=== PATIENT | male | born 1985 | race Two or more races ===

== ENCOUNTER 2017-12-29 21:36 | Observation (INO) | payer BC ==
--- NOTE | 2017-12-29 21:46 | CPEKG ---
Heart Rate: 66 RR Interval: 909 P-R Interval: 176 QRSD Interval: 108 QT Interval: 468 QTC Interval: 491 P [place]: 20 QRS [place]: -31 T Wave [place]: 41 EKG Severity - ABNORMAL ECG - EKG Impression: SINUS RHYTHM EKG Impression: BORDERLINE IVCD WITH LAD EKG Impression: INFERIOR Q WAVES, PROBABLY NORMAL VARIATION EKG Impression: ST ELEV, PROBABLE NORMAL EARLY REPOL PATTERN EKG Impression: PROLONGED QT INTERVAL Electronically Signed By: Aramis Littlejohn 30-Dec-2017 06:54:33
--- NOTE | 2017-12-29 21:46 | EDPHY ---
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 The patient completed the race and was in the recovery 10 and had some vomiting and had a brief 30 sec seizure. He was given 2 mg IV Versed by EMS and brought to the emergency room. He did receive a 500 cc normal saline fluid bolus and additionally he was orally hydrating with hypertonic solution. He did not get any hypertonic IV solution. Upon arrival he is brought to ER room 2. He is mentating appropriately and answers my questions. He is in no acute distress. Past Medical History: Denies medical history Past Surgical History: Denies surgical history Social History: Denies drugs alcohol tobacco. Family History: Noncontributory ROS REVIEW OF SYSTEMS: A comprehensive 10 point review of systems is otherwise negative aside from elements mentioned in the history of present illness. Exam Constitutional nontoxic appearing, dehydrated triage nursing summary reviewed, vital signs reviewed, awake/alert. Eyes normal conjunctivae and sclera, EOMI, PERRLA. HENT normal inspection, atraumatic, dry mucus membranes, no epistaxis, neck supple/ no meningismus, no raccoon eyes. Respiratory clear to auscultation bilaterally, normal breath sounds, no respiratory distress, no wheezing. Cardiovascular rate normal, regular rhythm, no murmur, no edema, distal pulses normal. Gastrointestinal soft, non-tender, no rebound, no guarding, normal bowel sounds, no distension, no pulsatile mass. Genitourinary no CVA tenderness. Musculoskeletal no midline vertebral tenderness, full range of motion, no calf swelling, no tenderness of extremities, no meningismus, good pulses, neurovascularly intact. Skin pink, warm, & dry, no rash, skin atraumatic. Neurologic awake, alert and oriented x 3, AAOx3, moves all 4 extremities equally, motor intact, sensory intact, CN II-XII intact, normal cerebellar, normal vision, normal speech. Psychiatric normal mood/affect. Heme/Lymph/Immune no lymphadenopathy. Differential Diagnosis: Includes but is not limited to in a particular order dehydration, electrolyte disturbance, hyponatremia, seizure from hyponatremia, rhabdomyolysis, renal failure Medical Decision Making: Plan for this patient IV establishment full director of cardiac rehabilitation obtain EKG and basic blood work electrolytes, will obtain sodium, most likely gently hydrate with IV fluids. If he has another seizure will give hypertonic saline. Re-evaluation: EKG interpretation by me on record in [facility] system. Impression time of EKG 2140, this is sinus rhythm rate of 66 no acute ischemic change. Early repol pattern appreciated. ED x-ray chest one view: Negative for acute cardiopulmonary disease. 2330: Patient is resting comfortably no acute distress. He is receiving IV fluids. Electrolytes have been noted. Hyponatremic. He is volume depleted. He did urinate here. Patient need to be admitted for rhabdomyolysis, hyponatremia, dehydration any seizure. No further seizure activity here in the emergency room. 2343: Spoke with Dr. Beauchamp hospitalist agrees to admit. 1223AM: Patient started vomiting, complaining headache, slightly confused. I have ordered him 100 mL of 3% hypertonic saline. Will re-evaluate shortly. Source: Patient, EMS Constitutional: Initial Vital Signs Temperature (C) 36.3 C 12/29/17 21:41 Heart Rate 61 12/29/17 21:41 Respiratory Rate 18 12/29/17 21:41 Blood Pressure 108/63 12/29/17 21:41 O2 Sat (%) 98 12/29/17 21:41 O2 Delivery Mode Room Air Allergies/Adverse Reactions: ampicillin Allergy (Intermediate, Verified 12/29/17 22:03) Rash Home Medications: Medication Instructions Recorded NK [No Known Home Meds] 12/29/17 Medical Decision Making - Data Points Laboratory Results: Laboratory Results 12/29/17 21:46 12/29/17 21:46 Medications Given: Discontinued Medications Acetaminophen (Tylenol) 650 mg PO Q4HRS PRN PRN Reason: Pain, Mild/Fever, Can Take PO Stop: 06/27/18 23:47 Last Admin: 12/30/17 09:52 Dose: 650 mg Acetaminophen (Tylenol) 1,000 mg PO ONCE ONE Stop: 12/30/17 00:10 Last Admin: 12/30/17 00:19 Dose: 1,000 mg Sodium Chloride (Ns) 1,000 mls @ 0 mls/hr IV ONCE ONE PRN Reason: Wide Open Stop: 12/29/17 22:39 Last Admin: 12/29/17 22:51 Dose: 1,000 mls Sodium Chloride (Ns) 1,000 mls @ 0 mls/hr IV ONCE ONE PRN Reason: Wide Open Stop: 12/29/17 23:53 Last Admin: 12/30/17 02:31 Dose: 1,000 mls Sodium Chloride (Sodium Chloride 3%) 100 mls @ 0 mls/hr IV CONT SUZE PRN Reason: As Directed Stop: 06/28/18 00:14 Last Admin: 12/30/17 00:20 Dose: 100 mls Ondansetron HCl (Zofran) 4 mg IVP EDNOW ONE Stop: 12/29/17 22:53 Last Admin: 12/29/17 22:52 Dose: 4 mg Promethazine HCl (Phenergan) 6.25 mg IVP ONCE ONE Stop: 12/30/17 00:10 Last Admin: 12/30/17 00:19 Dose: 6.25 mg Point of Care Test Results: Chemistry 12/29/17 21:41 POC Troponin I 0.02 ng/mL ng/mL (0.00-0.08) Departure - Departure Disposition: [facility] Inpatient Acute Clinical Impression: Dehydration, Seizure, Hyponatremia Rhabdomyolysis Qualifiers: Rhabdomyolysis type: non-traumatic Qualified Code(s): M62.82 - Rhabdomyolysis Condition: Fair
[2017-12-29 22:01] LABS: PLATELET COUNT 153 10^3/uL (150-400)
[2017-12-29 22:19] LABS: INR 1.17 (0.83-1.16); PROTIME(PATIENT) 15.1 SEC (12.0-15.0)
[2017-12-29 22:24] LABS: CREATINE KINASE 976 IU/L (0-224)
[2017-12-29] MEDS ORDERED: NS 1,000 ML IV ONE ×2 (22:38→23:52)
[2017-12-29] MEDS ORDERED: ONDANSETRON 4 MG/2 ML VIAL ONE (22:48)
[2017-12-29] MEDS ORDERED: ONDANSETRON 4 MG/2 ML VIAL IVP ONE (22:52)
[2017-12-29] MEDS ORDERED: ACETAMINOPHEN 325 MG TAB PO PRN (23:48)
[2017-12-29] MEDS ORDERED: ONDANSETRON DISINTEGRATING 4 MG TAB PO PRN (23:48)
[2017-12-29] MEDS ORDERED: ONDANSETRON 4 MG/2 ML VIAL IVP PRN (23:48)
[2017-12-30] MEDS ORDERED: ACETAMINOPHEN 500 MG TAB PO ONE (00:09)
[2017-12-30] MEDS ORDERED: PROMETHAZINE HCL 25 MG/ML INJ IVP ONE (00:09)
[2017-12-30] MEDS ORDERED: SODIUM Cl 3% 100 ML IV SCH (00:15)
--- NOTE | 2017-12-30 03:10 | PDGENHP ---
History and Physical - Chief Complaint Seizure - History of Present Illness 32 yo M w/ no PMHx presents after a seizure. Patient raced in the [employer] today. Shortly after crossing the finish line, he suffered a witnessed seizure. He tells me he remembers finishing and then he remembers waking up on the ground. He denies any prior seizure history or family history of epilepsy. At the time of my evaluation patient is asymptomatic. Laboratory evaluation in the ED was notable for mild hyponatremia (128) and leukocytosis. He is being admitted for observation. History Information - Allergies/Home Medication List Allergies/Adverse Reactions: ampicillin Allergy (Intermediate, Verified 12/29/17 22:03) Rash Home Medications: NK [No Known Home Meds] 12/29/17 [Last Taken Unknown] I have personally reviewed and updated: family history, medical history - Past Medical History no pertinent PMH - Surgical History Reports: no pertinent surgical hx - Family History Additional family history: Denies family hx of seizure d/o - Social History Smoking Status: Never smoked Review of Systems Review of Systems: ROS: 10pt was reviewed & negative except for what was stated in HPI & below Physical Exam Physical Exam: Temp Pulse Resp BP Pulse Ox 36.8 C 104 H 15 131/82 H 94 12/30/17 02:46 12/30/17 02:46 12/30/17 02:46 12/30/17 02:46 12/30/17 02:46 Constitutional: no apparent distress, not in pain Eyes: PERRL, EOMI Ears, Nose, Mouth, Throat: moist mucous membranes, no oral mucosal ulcers Cardiovascular: regular rate and rhythym, no murmur, rub, or gallop Respiratory: no respiratory distress, no rales or rhonchi Gastrointestinal: normoactive bowel sounds, soft, non-tender abdomen Skin: warm, normal color Musculoskeletal: full muscle strength, no muscle tenderness Neurologic: AAOx3, CN II-XII Intact Psychiatric: interacting appropriately, not anxious Lab Data & Imaging Review 12/29/17 21:46 12/30/17 01:01 WBC 17.85 10^3/uL (3.80-9.50) H 12/29/17 21:46 RBC 4.77 10^6/uL (4.40-6.38) 12/29/17 21:46 Hgb 14.2 g/dL (13.7-17.5) 12/29/17 21:46 Hct 41.2 % (40.0-51.0) 12/29/17 21:46 MCV 86.4 fL (81.5-99.8) 12/29/17 21:46 MCH 29.8 pg (27.9-34.1) 12/29/17 21:46 MCHC 34.5 g/dL (32.4-36.7) 12/29/17 21:46 RDW 12.4 % (11.5-15.2) 12/29/17 21:46 Plt Count 153 10^3/uL (150-400) 12/29/17 21:46 MPV 11.6 fL (8.7-11.7) 12/29/17 21:46 Neut % (Auto) 73.7 % (39.3-74.2) 12/29/17 21:46 Lymph % (Auto) 17.6 % (15.0-45.0) 12/29/17 21:46 [place] % (Auto) 7.8 % (4.5-13.0) 12/29/17 21:46 Eos % (Auto) 0.1 % (0.6-7.6) L 12/29/17 21:46 Baso % (Auto) 0.4 % (0.3-1.7) 12/29/17 21:46 Nucleat RBC Rel Count 0.0 % (0.0-0.2) 12/29/17 21:46 Absolute Neuts (auto) 13.15 10^3/uL (1.70-6.50) H 12/29/17 21:46 Absolute Lymphs (auto) 3.15 10^3/uL (1.00-3.00) H 12/29/17 21:46 Absolute Monos (auto) 1.40 10^3/uL (0.30-0.80) H 12/29/17 21:46 Absolute Eos (auto) 0.01 10^3/uL (0.03-0.40) L 12/29/17 21:46 Absolute Basos (auto) 0.07 10^3/uL (0.02-0.10) 12/29/17 21:46 Absolute Nucleated RBC 0.00 10^3/uL (0-0.01) 12/29/17 21:46 Immature Gran % 0.4 % (0.0-1.1) 12/29/17 21:46 Immature Gran # 0.07 10^3/uL (0.00-0.10) 12/29/17 21:46 PT 15.1 SEC (12.0-15.0) H 12/29/17 21:46 INR 1.17 (0.83-1.16) H 12/29/17 21:46 APTT 28.6 SEC (23.0-38.0) 12/29/17 21:46 VBG Lactic Acid 4.0 mmol/L (0.7-2.1) H 12/29/17 21:55 Sodium 128 mEq/L (135-145) L 12/30/17 01:01 Potassium 3.8 mEq/L (3.3-5.0) 12/30/17 01:01 Chloride 96 mEq/L (97-110) L 12/30/17 01:01 Carbon Dioxide 25 mEq/l (22-31) 12/30/17 01:01 Anion Gap 7 mEq/L (8-16) L 12/30/17 01:01 BUN 14 mg/dL (7-23) 12/30/17 01:01 Creatinine 0.7 mg/dL (0.7-1.3) 12/30/17 01:01 Estimated GFR > 60 12/30/17 01:01 Glucose 112 mg/dL (70-100) H 12/30/17 01:01 Calcium 7.9 mg/dL (8.5-10.4) L 12/30/17 01:01 Total Bilirubin 1.4 mg/dL (0.1-1.4) 12/29/17 21:46 Conjugated Bilirubin 0.3 mg/dL (0.0-0.5) 12/29/17 21:46 Unconjugated Bilirubin 1.1 mg/dL (0.0-1.1) 12/29/17 21:46 AST 60 IU/L (17-59) H 12/29/17 21:46 ALT 68 IU/L (21-72) 12/29/17 21:46 Alkaline Phosphatase 65 IU/L (38-126) 12/29/17 21:46 Creatine Kinase 976 IU/L (0-224) H 12/29/17 21:46 CK-MB (CK-2) Fraction 14.40 ng/mL (0.00-4.55) H 12/29/17 21:46 CK-MB (CK-2) % 1.5 % (0.0-4.0) 12/29/17 21:46 Creatine Kinase Interp NEGATIVE (NEGATIVE) 12/29/17 21:46 Total Protein 6.5 g/dL (6.3-8.2) 12/29/17 21:46 Albumin 3.9 g/dL (3.5-5.0) 12/29/17 21:46 Lipase 57 IU/L (23-300) 12/29/17 21:46 Urine Color PALE YELLOW 12/29/17 23:32 Urine Appearance CLEAR 12/29/17 23:32 Urine pH 7.0 (5.0-7.5) 12/29/17 23:32 Ur Specific [place] 1.008 (1.002-1.030) 12/29/17 23:32 Urine Protein NEGATIVE (NEGATIVE) 12/29/17 23:32 Urine Ketones TRACE (NEGATIVE) H 12/29/17 23:32 Urine Blood NEGATIVE (NEGATIVE) 12/29/17 23:32 Urine Nitrate NEGATIVE (NEGATIVE) 12/29/17 23:32 Urine Bilirubin NEGATIVE (NEGATIVE) 12/29/17 23:32 Urine Urobilinogen NEGATIVE EU (0.2-1.0) 12/29/17 23:32 Ur Leukocyte Esterase NEGATIVE (NEGATIVE) 12/29/17 23:32 Urine Glucose NEGATIVE (NEGATIVE) 12/29/17 23:32 Imaging Review: Imaging Impressions Chest X-Ray 12/29/17 21:42 Impression: No acute findings in the chest. Visualized and Interpreted Chest x-ray results: Yes Chest X-Ray results: no infiltrate Visualized and Interpreted EKG results: Yes EKG Interpretation: Positive for: normal sinsus rhythm, NS ST wave abnormalities Assessment & Plan Assessment: 32 yo M presents with seizure and hyponatremia after [employer] race. Plan: 1. Seizure - I suspect this was due to acute hyponatremia even though this appeared relatively mild on arrival in the ED (128). He denies any prior history of seizures and and is now back at baseline and asymptomatic. - Admit for observation - Seizure precautions 2. Acute, exercise induced hyponatremia - 128 on admission. - Continue IVF - Recheck BMP in the AM 3. Leukocytosis - reactive 2/2 strenuous exercise. Diet - Regular Code - Full Ppx - Low risk Dispo - Admit under observation status
[2017-12-30 05:22] LABS: CREATINE KINASE 1052 IU/L (0-224)
[2017-12-30 07:12] VITALS: BP 101/49
--- NOTE | 2017-12-30 10:41 | GDS ---
[f rep st] DISCHARGE SUMMARY DISCHARGE DIAGNOSES: 1. Seizure due to hyponatremia. 2. Hypovolemic hyponatremia. 3. Leukocytosis 4. Mild rhabdomyolysis HISTORY OF PRESENT ILLNESS: A 32-year-old male with no past medical history presents after a seizure. He raced in the [employer] yesterday and shortly finishing, he had a witnessed seizure. Remembers finishing the race and then waking up on the ground. No personal or family seizure history. At the time of evaluation by my colleague, he was asymptomatic. Sodium in the emergency room was 128. HOSPITAL COURSE BY PROBLEM: 1. Seizure: due to dehydration/acute hyponatremia. Initial sodium was 128, now 131 after fluids. He is asymptomatic this morning, a little fatigued. He feels comfortable going home with and sister. I recommend plenty of fluids , electrolyte beverages, including Pedialyte or Gatorade. Advised to avoid sun and dehydration. 2. Hypovolemic hyponatremia: due strenuous dehydration/hyponatremia. 3. Leukocytosis: stress reaction with strenuous exercise. Denies any infectious symptoms. 4. Mild rhabdomyolysis: from strenuous exercise with [employer]. Drink plenty of fluids. Kidney function is normal, normal UOP. DISPOSITION: Patient is stable for discharge home. MEDICATIONS: No new medications. RECOMMENDATIONS: Plenty of fluids, electrolyte repletion, and rest. Avoid sun and dehydration. PHYSICAL EXAMINATION: VITAL SIGNS: Today, temperature 36.9, blood pressure 101 /49. Heart rate is in the 50s, respirations 16, 95% on room air. GENERAL: Well -appearing male, in no acute distress. HEENT: PERRLA. EOMI. Oropharynx clear. Moist mucous membranes. CV: [place], but regular. No murmurs, gallops, or rubs. LUNGS: Clear. ABDOMEN: Soft, 5/5 upper and lower extremity strength. NEUROLOGIC: 2 through 12 intact. No focal deficits. He is alert and oriented x3. /[id number]/MODL MTDD
--- NOTE | 2017-12-30 10:46 | ASMTCASEMG ---
Living Arrangements What is your living Answers: With Spouse arrangement? Who do you live with? Type Of Residence What kind of residence do Answers: House you live in? Type of Residence Facility Name Notes: [place], [place] Discharge Plan Comments Coordination Status Comments Notes: Patient is a 32yo male who had a 30 second seizure after completing the [employer] Triathlon. Patient was admitted for deydration, electrolyte disturbance, hyponatremia, seizure from hyponatremia, rhabodomyolysis, renal failute. Patient lives in [place], [place] with his and will likely d/c independently to return home. CM available for any d/c needs that might arise. Date Signed: 12/30/2017 10:45 AM Electronically Signed By:Betsy Alves LCSW
== END 2017-12-30 10:46 | disposition home or self-care (01) ==
LOC: F3E 12-30 02:05
PROVIDERS: ADMIT Student in an Organized Health Care Education/Training Program; ATTEND Student in an Organized Health Care Education/Training Program
DX: E87.1 Hypo-osmolality and hyponatremia (principal); R56.9 Unspecified convulsions; M62.82 Rhabdomyolysis; D72.829 Elevated white blood cell count, unspecified
CPT/HCPCS: 71045; 93005; G0378; 84484-PO; 96374; J2405; J2550